=== PATIENT | female | born 1990 | race Asian ===

== ENCOUNTER 2017-01-07 22:17 | Emergency (ER) | payer OTHER ==
[~2017-01-07] VITALS: Ht 162.6 cm; Wt 70.3 kg
== END 2017-01-07 22:43 | disposition home or self-care (01) ==
LOC: ED 22:17
DX: K08.89 Other specified disorders of teeth and supporting structures (principal)
CPT/HCPCS: 99281

== ENCOUNTER 2017-07-15 23:07 | Emergency (ER) | payer OTHER ==
[~2017-07-15] VITALS: Ht 162.6 cm; Wt 68.0 kg
[2017-07-15 23:43] LABS: PLATELET COUNT 302 K/uL (152-353)
[2017-07-15 23:51] LABS: POTASSIUM 3.3 mmol/L (3.6-5.2)
[2017-07-16 00:45] VITALS: BP 119/62; TEMP 99.4
== END 2017-07-16 01:10 | disposition home or self-care (01) ==
LOC: ED 23:07
DX: O20.0 Threatened abortion (principal); Z3A.10 10 weeks gestation of pregnancy
CPT/HCPCS: 36415; 80053; 81000; 81025; 84702; 85027; 99284

== ENCOUNTER 2017-07-26 19:33 | Outpatient (CLI) | payer OTHER | END 2017-07-26 20:59 | disposition home or self-care (01) | LOC: LABW 19:33 | DX: O20.0 Threatened abortion (principal) | CPT/HCPCS: 36415; 84702 ==